=== PATIENT | female | born 1995 | race Caucasian/White ===

== ENCOUNTER → 2021-01-28 16:21 | Outpatient (CLI) | payer OTHER, SELFPAY ==
[2021-02-02 20:07] LABS: Chlamydia By Nucleic Acid AMP Negative (Negative)
[2021-02-02 23:22] LABS: Gonococcus By Nucleic Acid AMP Negative (Negative)
[2021-02-06 14:03] LABS: HPV APTIMA, High Risk Negative (Negative)
[2021-02-06 14:05] LABS: HPV Reflexed? YES, CHARGE PATIENT
== END ==
PROVIDERS: Visit Provider Obstetrics & Gynecology
DX: Z12.4 Encounter for screening for malignant neoplasm of cervix (principal); Z11.3 Encounter for screening for infections with a predominantly sexual mode of transmission; Z32.01 Encounter for pregnancy test, result positive
CPT/HCPCS: 87491; 87591; 87624; 88175; G0145

== ENCOUNTER 2023-03-10 21:50 | Inpatient (IN) | payer OTHER, SELFPAY ==
[2023-03-10] VITALS (7 sets, daily range): BP systolic 106–111; BP diastolic 55–66; PULSE 66–90; TEMP 36.5; O2SAT 96–98; BMI 50.6
[2023-03-10] MEDS: Lactated Ringers 1,000 ML 50 ML IV (22:30)
[2023-03-10 22:53] LABS: Absolute Lymphocyte Count 2.77 X10^3/uL (0.83-4.51); Absolute Neutrophil Count 7.8 X10^3/uL (2.0-7.7); Basophil# 0.02 X10^3/uL; Basophil% 0.2 % (0-1); Eosinophil# 0.06 X10^3/uL; Eosinophils% 0.5 % (0-5); Hemoglobin 11.5 g/dL (12.0-15.0); Lymphocyte # 2.77 X10^3/ul (0.83-4.51); Lymphocyte % 24.3 % (19-41); Mean Corp Hgb Conc 31.1 g/dL (32-36); Mean Corpuscular Hgb 27.1 pg (27.0-32.0); Mean Corpuscular Volume 87.1 fL (81-99); Mean Platelet Vol. 10.4 fl (6.2-12.0); Monocyte# 0.71 X10^3/uL; Monocyte% 6.2 % (0-10); NRBC Flagged by Analyzer 0 % (0-5); Neutrophil # 7.81 X10^3/uL (2.7-7.7); Neutrophil % 68.4 % (47-70); Platelet Count 309 K/mm3 (150-450); RBC Distribution Width CV 14.6 % (11.6-14.6); RBC Distribution Width SD 46.1 fl (35.1-43.9); Red Blood Count 4.25 M/mm3 (4.2-5.4); White Blood Count 11.4 K/mm3 (4.4-11.0)
[2023-03-10] MEDS: miSOPROStol 25 MCG TABLET VAGINAL (23:23)
[2023-03-10 23:28] LABS: Syphilis Antibodies Non-reactive
[2023-03-11] VITALS (62 sets, daily range): BP systolic 87–130; BP diastolic 47–82; PULSE 61–106; RESP 16; TEMP 36.1–37.2; O2SAT 89–100
[2023-03-11] MEDS: miSOPROStol 50 MCG TABLET VAGINAL (03:29)
[2023-03-11] MEDS: LACTATED RINGERS 500 ML 999 ML IV ×3 (08:50→16:06)
[2023-03-11] MEDS: 0.9% Normal Saline Single 100 ML IV.SOLN. INTRA-UTER (09:27)
[2023-03-11] MEDS: fentaNYL 100 MCG/2 ML Ampul IV (09:32)
--- NOTE | 2023-03-11 09:45 | PCM.HP.OB ---
HPI - General General Date of Admission: 03/10/23 Date of Service: 03/11/23 Chief Complaint: HPI Dave RODRIGUEZ, is a 27-year-old female 2 para 0 who presents at 39 weeks gestation for induction of labor due to maternal obesity. has been uncomplicated to date. She has a history of 1 previous first trimester miscarriage. She denies any vaginal bleeding or leaking of fluid. Maternal Data Information Final TIFFANIE: 03/15/23 Gestational age: 39 3/7 PFSH PFSH Home Medications aspirin 81 mg tablet,delayed release 81 mg PO DAILY bmi 03/11/23 [History Last Taken 03/09/23 20:00 81 mg] [id number] 1 mg tablet tab PO DAILY nutrition 03/11/23 [History Last Taken 03/09/23 20:00 1 TAB] Allergy/AdvReac Type Severity Reaction Status Date / Time amoxicillin Allergy Intermediate Hives Verified 03/10/23 22:06 Surgical History (Updated 03/10/23 @ 22:30 by Tessa Celaya) History of surgery Social History Smoking Status: Never smoker History Elective abortions Hx Para 0 Spontaneous abortions Hx # Term Pregnancies Ectopic pregnancies Hx # Pregnancies Multiple births # of living children ROS Constitutional Constitutional: Denies fatigue, fever(s) or malaise Eyes Eyes: Denies change in vision ENT HEENT: Denies dizziness or headache(s) Cardiovascular Cardiovascular: Denies chest pain, dyspnea or lightheadedness Respiratory/Chest Respiratory/Chest: Denies cough or dyspnea Gastrointestinal Gastrointestinal: Denies change in bowel habits Genitourinary Genitourinary: Denies burning urination or genital lesions Integumentary Integumentary: Denies rash Neurologic Neurologic: Denies confusion, dizziness, headache(s), numbness or weakness Vital Signs Vital Signs Vital Signs: 03/10/23 20:49 03/10/23 20:49 03/10/23 20:49 Temperature Temperature Source Pulse Rate 87 Blood Pressure 111/66 BP Systolic 111 BP Diastolic 66 Pulse Ox 96 03/10/23 20:49 03/10/23 21:02 03/10/23 21:02 Temperature Temperature Source Pulse Rate 87 89 Blood Pressure 106/60 BP Systolic 106 BP Diastolic 60 Pulse Ox 03/10/23 22:45 03/10/23 22:45 03/10/23 22:50 Temperature Temperature Source Pulse Rate 66 73 Blood Pressure BP Systolic BP Diastolic Pulse Ox 98 03/10/23 22:50 03/10/23 23:19 03/10/23 23:20 Temperature Temperature Source Pulse Rate 90 Blood Pressure 106/55 L BP Systolic 106 BP Diastolic 55 Pulse Ox 96 03/10/23 23:20 03/10/23 23:18 03/10/23 23:18 Temperature 97.7 F L Temperature Source Temporal Pulse Rate Blood Pressure BP Systolic BP Diastolic Pulse Ox 97 03/11/23 02:56 03/11/23 02:56 03/11/23 02:56 Temperature Temperature Source Temporal Pulse Rate 68 Blood Pressure 111/69 BP Systolic 111 BP Diastolic 69 Pulse Ox 03/11/23 02:56 03/11/23 02:56 03/11/23 05:00 Temperature 97.6 F L Temperature Source Pulse Rate Blood Pressure 112/71 BP Systolic 112 BP Diastolic 71 Pulse Ox 97 03/11/23 05:00 03/11/23 05:00 03/11/23 05:00 Temperature 98.5 F Temperature Source Temporal Pulse Rate 86 Blood Pressure BP Systolic BP Diastolic Pulse Ox 03/11/23 05:00 03/11/23 07:20 03/11/23 07:20 Temperature Temperature Source Pulse Rate 68 Blood Pressure 130/71 H BP Systolic 130 BP Diastolic 71 Pulse Ox 97 03/11/23 07:20 03/11/23 07:19 03/11/23 07:19 Temperature Temperature Source Temporal Pulse Rate Blood Pressure BP Systolic BP Diastolic Pulse Ox 95 97 03/11/23 07:19 03/11/23 07:19 03/11/23 07:19 Temperature 98.7 F Temperature Source Temporal Pulse Rate Blood Pressure BP Systolic BP Diastolic Pulse Ox 97 03/11/23 07:19 Temperature 98.7 F Temperature Source Pulse Rate Blood Pressure BP Systolic BP Diastolic Pulse Ox Weight Weight: 125.645 kg Body Mass Index (BMI) 50.6 Physical Exam Const alert and no apparent distress General Appearance: cooperative HEENT normocephalic Resp normal respiratory effort Cardio regular rate GI soft to palpation GI Narrative: gravid, nontender, appropriate for gestational age Extremity no calf tenderness General Extremity: edema Skin no wounds Rashes: No rashes noted Psych activity/motor behavior normal Labs Labs Labs: Blood Type Pending Antibody Screen NEGATIVE Hct 37.0 % (37-47) Hgb 11.5 g/dL (12.0-15.0) L Syphilis Total Ab Non-reactive Chlamydia DNA ([facility]) Negative (Negative) N.gonorrhoeae DNA ([facility]) Negative (Negative) Assessment & Plan (1) 39 weeks gestation of : PLAN: Risk benefits and alternatives to induction of labor were discussed with the patient, her questions were answered to her satisfaction she desires to proceed. Estimated weight is less than 4500 g clinically and pelvis clinically adequate to expect vaginal delivery. May use routine pain measures and . Plan is for Cytotec with Love, Pitocin and artificial rupture of membranes if needed induction. Procedure note: Love catheter was placed over stylette through the internal cervical os in the usual sterile fashion. Cervix was 2 cm dilated 70% effaced and -2 station. The balloon was inflated with 30 cc of normal saline and the patient the fetus tolerated procedure well. Placement over internal cervical os confirmed. (2) Nulliparity: (3) High-risk in third trimester: (4) Maternal obesity syndrome in third trimester: (5) BMI 50.0-59.9, adult:
[2023-03-11] MEDS: Oxytocin 15 Units/NS 250ml 15 UNITS/250 ML IV.SOLN 2 UNITS IV (10:16)
[2023-03-11] MEDS: Lactated Ringers 1,000 ML 50 ML IV (11:41)
[2023-03-11] MEDS: fentaNYL-bupivacaine (epidural) 100 ML BAG EPIDURAL ×2 (13:20→17:45)
[2023-03-11] MEDS: Lactated Ringers 1,000 ML 200 ML IV (17:50)
--- NOTE | 2023-03-11 18:57 | EX.PCM.OBRPT ---
Assessment & Plan (1) (spontaneous vaginal delivery): Maternal Data Information Final TIFFANIE: 03/15/23 Gestational age: 39 3/7 Vaginal Delivery Maternal Presentation Maternal Presentation: Medically Indicated Induction Type of Induction: Pitocin, Love Bulb, Amniotomy and Cytotec Medical Reason for Induction: - (Maternal obesity) Operative Information Date of Procedure: 03/11/23 Pre-Operative Diagnosis: labor Post-Operative Diagnosis: same Surgery / Procedure Performed: Spontaneous Vaginal Delivery Type of Anesthesia: Epidural Drain: Love to straight drain Estimated Blood Loss: 200 Time of Delivery: 16:36 Findings Description of Procedure: A vigorous female was delivered ZAINAB over a small second-degree vaginal laceration. The remainder the infant was delivered with maternal pushing and without traction in less than 15 seconds. I arrived at delivery The Pitocin infusion was initiated for active management of the third stage. The cord was clamped and cut after cord pulsations ceased. The infant was attended to by the waiting nursing staff. The placenta was delivered spontaneously and intact. The cervix and vagina were intact. The second-degree perineal laceration was repaired with 2-0 Vicryl suture in a running standard fashion. Sponge and needle counts were correct. A vaginal sweep was completed by me. Presentation: ZAINAB Amniotic Membrane Rupture Type: Artificial Amniotic Fluid Description: Clear Placental Delivery Description: Spontaneous Placenta Disposition: [facility] Cord Vessel Description: 3 Vessels Cord Entanglement: None Nuchal Cord Compression: Without compression A Gender: Female (Jose Enrique) (1 minute): 8 (5 minute): 9 Delayed Cord Clamping: Yes Post Vaginal Delivery Medications Given After Delivery: IV Pitocin Episiotomy Description: None Laceration: 2nd degree (vaginal) Complication Complications: None
[2023-03-11] MEDS: Oxytocin 15 Units/NS 250ml 15 UNITS/250 ML IV.SOLN 83 UNITS IV (19:49)
[2023-03-12 04:12] VITALS: BP 111/62; PULSE 82; RESP 16; TEMP 36.4; O2SAT 97
[2023-03-12 08:13] VITALS: BP 97/45; PULSE 83; RESP 16; TEMP 36.1; O2SAT 95
[2023-03-12] MEDS: Acetaminophen 500 MG Tablet 1000 MG PO (08:37)
[2023-03-12] MEDS: Senna/Docusate Sodium 1 Tablet PO (10:11)
--- NOTE | 2023-03-12 10:13 | PCM.PN.OB ---
Subjective Subjective Pain well controlled, average lochia. No other c/o Objective Data Objective Data Vital Signs: Vital Signs Temp Pulse Resp BP Pulse Ox O2 Del Method 97.0 F L 83 16 97/45 L 95 Room Air 03/12/23 08:13 03/12/23 08:13 03/12/23 08:13 03/12/23 08:13 03/12/23 08:13 03/12/23 08:13 Oxygen Delivery Method Room Air Weight: 125.645 kg Body Mass Index (BMI) 50.6 Intake & Output: Intake and Output for Last 24 Hours 03/10/23 03/11/23 03/12/23 23:59 23:59 23:59 Intake Total 3779.17 / 3779.17 Output Total 1100 / 1100 1050 / 1050 Balance 2679.17 / 2679.17 -1050 / -1050 Lab / Micro Data 03/10/23 22:40 Labs: Laboratory Results - last 24 hr 03/12/23 06:10: Direct Antiglob Test Cancelled, Baby's Blood Type Cancelled Physical Exam Narrative awake, alert, NAD fundus- difficult to appreciate due to pannus Ext-1+ edema Assessment & Plan (1) (spontaneous vaginal delivery): PLAN: PPD#1 doing well routine care bottlefeeding and doing well likely home tomorrow
[2023-03-12] MEDS: Ibuprofen 600 MG Tablet PO ×2 (10:14→19:08)
[2023-03-12 12:46] VITALS: BP 105/53; PULSE 74; RESP 16; TEMP 36.6; O2SAT 96
[2023-03-12 15:33] VITALS: BP 102/62; PULSE 65; RESP 16; TEMP 36.3; O2SAT 95
[2023-03-12 20:33] VITALS: BP 107/55; PULSE 79; RESP 16; TEMP 36.2; O2SAT 97
--- NOTE | 2023-03-12 21:15 | NURSING ---
Report received report at this time, taking over pt care.
[2023-03-13 01:28] VITALS: BP 97/47; PULSE 64; RESP 18; TEMP 36.4; O2SAT 97
[2023-03-13 06:53] VITALS: BP 117/75
[2023-03-13 07:48] VITALS: BP 108/66; PULSE 74; RESP 18; TEMP 36.3; O2SAT 99
--- NOTE | 2023-03-13 08:58 | DS.PCM_ITS ---
Providers Date of Admission: 03/10/23 Primary Care Physician: Ashley Primary Care Phys Reason For Visit: VAGINAL Diagnosis Discharge Diagnosis (1) (spontaneous vaginal delivery): Status: Acute Code(s): O80 - Encounter for full-term uncomplicated delivery Medications at Discharge Home Medications [id number] 1 mg tablet tab PO DAILY nutrition 03/11/23 acetaminophen 500 mg tablet 1,000 mg (2 x 500 mg) PO Q6H PRN PRN Pain 1-10 Or Fever #0 tabs 03/13/23 ibuprofen 600 mg tablet 600 mg PO Q6H PRN PRN Pain Score 1-10 #0 tabs 03/13/23 Physical Exam Const alert and oriented x3 General Appearance: cooperative Orientation / Consciousness: awake, oriented to person, oriented to place and o riented to time Exam Limitations: no limitations HEENT normocephalic Head and Scalp: normal to inspection, normocephalic and atraumatic Face and Sinus: normal facial exam Eyes General Eye: normal appearance of both eyes Neck full ROM Chest Chest: symmetrical chest wall rise Resp normal respiratory effort and normal air movement Auscultation: clear to auscultation bilaterally Cardio regular rate, regular rhythm, S1 normal heart sound, S2 normal heart sound, no murmurs, no rub, no gallops and no clicks GI non-tender GI Narrative: bowel sounds hypoactive. Incision clean and dry, no drainage. appearance of the vagina normal Bladder / Kidney Exam: no CVA tenderness Back/Spine normal ROM Extremity normal to inspection and full ROM Skin no rashes or lesions noted Neuro oriented x3, CN's II-XII intact bilaterally and moves all extremities Sensorium / Orientation: awake, alert and oriented to person Motor Exam: clonus absent Deep Tendon Reflexes: Rt Patellar (L4): 2+ and Lt Patellar (L4): 2+ Weight / BMI Weight Weight: 277 lb Body Mass Index (BMI) 50.6 ABG / Lab / Microbiology Data 03/10/23 22:40 Meaningful Use Info Meaningful Use Diagnoses (Choose all that apply): None applicable Discharge Plan Admission Admit Date/Time: 03/10/23 21:50 Primary Reason for Your Visit: Vaginal Delivery Attending Provider: Alannah Blank Primary Care Provider: Care Physician,Ashley Primary Discharge Orders/Prescriptions Prescriptions: New acetaminophen 500 mg Tablet 1,000 mg PO Q6H PRN PRN (Reason: Pain 1-10 Or Fever) Qty: 0 0RF ibuprofen 600 mg Tablet 600 mg PO Q6H PRN PRN (Reason: Pain Score 1-10) Qty: 0 0RF Continued [id number]-[id number] 1 mg tablet PO DAILY Discontinued aspirin 81 mg tablet,delayed release (DR/EC) 81 mg PO DAILY Referrals / Follow Up: Care Physician,No Primary [Primary Care Provider] - Disposition Disposition (needs filled in before D/C Order can be placed): Home, Self Care
--- NOTE | 2023-03-13 09:00 | PCM.PN.OB ---
Subjective Subjective Doing well per patient and nursing staff. Ambulating and taking PO without difficulty. Voiding and passing flatus. Pain controlled. Denies headache, visual changes, chest pain, shortness of breath, leg pain or increased bleeding. Lochia normal. Objective Data Objective Data Vital Signs: Vital Signs Temp Pulse Resp BP Pulse Ox O2 Del Method 97.4 F L 74 18 108/66 99 Room Air 03/13/23 07:48 03/13/23 07:48 03/13/23 07:48 03/13/23 07:48 03/13/23 07:48 03/13/23 07:48 Oxygen Delivery Method Room Air Weight: 277 lb Body Mass Index (BMI) 50.6 Intake & Output: Intake and Output for Last 24 Hours 03/11/23 03/12/23 03/13/23 23:59 23:59 23:59 Intake Total 3779.17 / 3779.17 Output Total 1100 / 1100 1050 / 1050 Balance 2679.17 / 2679.17 -1050 / -1050 Lab / Micro Data 03/10/23 22:40 ROS Constitutional Constitutional: Reports systems reviewed and no addt'l complaints, except as documented; Denies headache(s) Eyes Eyes: Denies acute decrease in peripheral vision, blurry vision or change in vision ENT HEENT: Reports systems reviewed and no addt'l complaints, except as documented Cardiovascular Cardiovascular: Denies chest pain or dizziness Respiratory/Chest Respiratory/Chest: Denies cough, dyspnea, dyspnea on exertion, shortness of breath at rest or shortness of breath with exertion Gastrointestinal Gastrointestinal: Denies abdominal pain, diarrhea, nausea or vomiting Genitourinary Genitourinary: Denies abdominal discomfort Musculoskeletal Musculoskeletal: Denies limited range of motion Integumentary Integumentary: Reports systems reviewed and no addt'l complaints, except as documented Neurologic Neurologic: Reports systems reviewed and no addt'l complaints, except as documented Psychiatric Psychiatric: Reports systems reviewed and no addt'l complaints, except as documented Endocrine Endocrinology: Reports systems reviewed and no addt'l complaints, except as documented Hematologic/Lymphatic Hematologic/Lymphatic: Reports systems reviewed and no addt'l complaints, except as documented Allergic/Immunologic Allergic/Immunologic: Reports systems reviewed and no addt'l complaints, except as documented Assessment & Plan (1) (spontaneous vaginal delivery): (2) BMI 50.0-59.9, adult: PLAN: Plan 1) D/C home today 2) Follow up in 2 weeks and 6 weeks
== END 2023-03-13 09:45 | disposition home or self-care (01) | DRG 807 ==
LOC: WPOUT 21:57 → WP 21:57
PROVIDERS: Admitting Provider Obstetrics & Gynecology; Referring Provider Obstetrics & Gynecology; Visit Provider Obstetrics & Gynecology
DX: O99.214 Obesity complicating childbirth (principal); Z37.0 Single live birth; E66.8 Other obesity; O69.2XX0 Labor and delivery complicated by other cord entanglement, with compression, not applicable or unspecified; O70.1 Second degree perineal laceration during delivery; Z79.82 Long term (current) use of aspirin; Z3A.39 39 weeks gestation of pregnancy
CPT/HCPCS: 59025; 59050; 85025; 86780; 86850; 86900; 86901; 99221; J7120; G0378; J2790